=== PATIENT | male | born 1965 | race Caucasian/White ===

== ENCOUNTER 2018-08-08 20:22 | Emergency (ER) | payer BC, SELFPAY ==
[2018-08-08 20:31] VITALS: BP 126/85; PULSE 115; RESP 18; TEMP 36.3; O2SAT 100
--- NOTE | 2018-08-08 20:51 | PC.NURSE ---
reports recent travel to [facility] and on return flight noticed a burning pain on right buttock near anus. Seen and prescribed abx at [facility].
--- NOTE | 2018-08-08 21:05 | ED.SKABFB ---
HPI - Skin/Abscess/Foreign Bdy General Chief complaint: Urogenital-Male Stated complaint: states something in butt [place] Time Seen by Provider: 08/08/18 20:32 Source: patient and family Mode of arrival: ambulatory Limitations: no limitations History of Present Illness HPI narrative: 52-year-old male smoker an otherwise healthy presents with his for evaluation of a painful bump on his right buttock. He has pain with sitting but denies any discomfort with bowel movements or systemic findings such as fever, chills nor nausea or vomiting. He denies any spontaneous drainage or history of MRSA. He does state that he was seen and evaluated by his primary care provider out on [facility] and was placed on Augmentin. There was no attempt at incision and drainage MD complaint: abscess/boil Onset (ago): day(s) Tetanus up to date: yes Location: buttocks Severity: moderate Quality: burning Pain Consistency: constant Relieving factors: none Exacerbating factors: none Context: none Associated symptoms: denies other symptoms Treatments prior to arrival: antibiotic Related Data Previous Rx's Medication Instructions Recorded doxycycline hyclate 100 mg PO BID #20 tab 08/08/18 Allergies Allergy/AdvReac Type Severity Reaction Status Date / Time No Known Drug Allergies Allergy Verified 08/08/18 20:39 Review of Systems Constitutional Denies chills, Denies fever(s), Denies lethargy and Denies weakness Eyes Denies change in vision, Denies eye discharge, Denies irritation and Denies loss of vision ENT Ears, Nose, Mouth, and Throat: Denies change in voice, Denies neck pain and Denies sore throat Cardiovascular Denies chest pain, Denies irregular heart rhythm, Denies lightheadedness, Denies palpitations, Denies dyspnea, Denies dyspnea on exertion and Denies orthopnea Respiratory Denies cough, Denies dyspnea, Denies dyspnea on exertion and Denies wheezing Gastrointestinal Gastrointestinal: Denies abdominal pain, Denies change in bowel habits, Denies diarrhea, Denies nausea and Denies vomiting Genitourinary Denies hematuria, Denies flank pain, Denies urinary incontinence and Denies urinary urgency Musculoskeletal Denies neck pain Integumentary/Breasts Denies pruritus, Reports erythema, Denies rash, Reports skin pain, Reports skin swelling and Denies wounds Neurologic Denies confusion, Denies loss of vision and Denies weakness Psychiatric Denies anxiety, Denies confusion, Denies depression, Denies homicidal ideation and Denies suicidal ideation Endocrine Denies palpitations Hematologic/Lymphatic Denies easy bruising Allergic/Immunologic Denies wheezing PFSH Social History Smoking Status: Current every day smoker Social History Smoking Status: Current every day smoker Exam Narrative Exam Narrative: GEN: 52-year-old male appears stated age in mild distress, obviously in pain EYES: Pupils are equal, round, and reactive to light and accommodation. Extraoccular muscles are intact bilaterally. There is no subconjunctival hemorrhage or exudate. CHEST: Lungs are clear to auscultation bilaterally and free of wheezes, rales, or rhonchi. Heart rate is regular rhythm, there are no murmurs, clicks, rubs, or gallops. There is no chest wall tenderness. ABD: Abdomen is soft and nontender. There is no guarding or rebound. Bowel sounds are normal in all 4 quadrants. There is no mass or organomegaly. EXT: Full painless ROM of all extremities with no loss of sensation or strength. SKIN: 3 cm area of painful, erythematous induration on left buttock with some central fluctuance. RECTAL: No pain, swelling or induration on rectal exam to suggest perirectal abscess. This is performed with a nursing allied health instructor and the patient's permission Initial Vital Signs Initial Vital Signs: Vital Signs Temperature 97.4 F L 08/08/18 20:31 Pulse Rate 115 H 08/08/18 20:31 Respiratory Rate 18 08/08/18 20:31 Blood Pressure 126/85 08/08/18 20:31 Pulse Oximetry 100 08/08/18 20:31 Procedures Abscess I/D Site: other Side (if applicable): right Local Anesthetic: lidocaine 1% and with epi Amount of anesthesia used (mL): 4 Technique: incised with #11 blade Amount of fluid expressed (mL): 5 Irrigation: No Packing used?: none Complications: pain Course Orders Ordered: Discontinued Medications Hydrocodone Bitart/Acetaminophen (Vicodin Prepack) 1 bottle MISC SEEINSTR ONE Stop: 08/08/18 21:06 Last Admin: 08/08/18 21:29 Dose: 1 bottle Doxycycline Hyclate (Vibramycin) 100 mg PO NOW ONE Stop: 08/08/18 21:06 Last Admin: 08/08/18 21:29 Dose: 100 mg Vital Signs - 8 hr 08/08/18 21:45 Pulse Rate 88 Respiratory Rate 14 Blood Pressure 119/72 Pulse Oximetry 99 MDM - Skin/Abscess/Foreign Bdy MDM Narrative Medical decision making narrative: 52-year-old smoker with physical exam consistent with medial left buttock abscess status post incision and drainage. Perirectal abscess considered but lack of systemic findings or pain on rectal exam make this less likely Discharge Plan Departure Patient Disposition: Home Clinical Impression: Abscess Discharge Date/Time: 08/08/18 21:48 Interventions: ED Discharge Assessment Last Done: 08/08/18 21:45 Instructions: Boil Activity Restrictions/Additional Instructions: *You have been diagnosed with [ Right buttock abscess ] *What to do: *Take medications as directed *Follow up with your primary care provider in 2-3 days, call for an appointment. Let them know you were seen in the Emergency Department and that we ask that you be seen in follow up *Return to ER if you should have any new, worsening or concerning symptoms Prescriptions: New doxycycline hyclate 100 mg tablet 100 mg PO BID Qty: 20 RF: 0
[2018-08-08] MEDS: DOXYCYCLINE HYCLATE 100 MG TABLET PO (21:29)
[2018-08-08] MEDS: HYDROCODONE/ACET 5/325 PREPACK 1 BOTTLE MISC (21:29)
[2018-08-08 21:45] VITALS: BP 119/72; PULSE 88; RESP 14; O2SAT 99
== END 2018-08-08 21:48 | disposition home or self-care (01) ==
PROVIDERS: Emergency Provider Emergency Medicine
DX: L02.31 Cutaneous abscess of buttock (principal)
CPT/HCPCS: 10060; 99282; 99283